=== PATIENT | female | born 1950 | race Caucasian/White ===

== ENCOUNTER 2019-07-01 08:02 | Emergency (ER) | payer MEDICARE ==
[2019-07-01] MEDS ORDERED: Ketorolac Tromethamine 30 MG/ML VIAL ONE (08:25)
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
[2019-07-01] MEDS ORDERED: Diazepam 5 MG TAB ONE (09:00)
== END 2019-07-01 09:18 | disposition home or self-care (01) ==
LOC: ERS 08:02
DX: M54.6 Pain in thoracic spine (principal); M54.5 Low back pain; M54.2 Cervicalgia; R51 Headache; M25.552 Pain in left hip; I10 Essential (primary) hypertension; J44.9 Chronic obstructive pulmonary disease, unspecified; F41.9 Anxiety disorder, unspecified; Z79.899 Other long term (current) drug therapy; V89.2XXA Person injured in unspecified motor-vehicle accident, traffic, initial encounter
CPT/HCPCS: 70450; 72125; 96372; J1885

== ENCOUNTER 2020-08-27 12:50 | Inpatient (IN) | payer MEDICARE ==
[2020-08-27 14:39] LABS: #Eosinphils 0.4 thou/uL (0.0-0.7); #Lymphocytes 1.8 thou/uL (1.20-3.40); #Monocytes 0.7 thou/uL (0.11-0.59); #Neutrophils 5.2 thou/uL (1.40-6.50); %Basophils 0.2 % (0.0-1.0); %Eosinophils 4.5 % (0.0-10.0); %Lymphocytes 22.5 % (21.0-51.0); %Monocytes 8.3 % (0.0-10.0); %Neutrophils 64.5 % (42.0-75.0); Hemoglobin 15.3 g/dL (12.0-16.0); Mean Corpuscular HGB CONC 35.1 g/dL (32.0-36.0); Mean Corpuscular Hemoglobin 31.1 pg (27.0-31.0); Mean Corpuscular Volume 88.5 fL (78.0-98.0); Mean Platelet Volume 7.8 fL (7.4-10.4); Platelet Count 287 thou/uL (130-400); RBC Distribution Width 11.7 % (11.5-14.5); Red Blood Cell (RBC) Count 4.91 mill/uL (4.20-5.40); White Blood Cell (WBC) Count 8.1 thou/uL (4.8-10.8)
[2020-08-27 14:47] LABS: ALT (SGPT) 17 U/L (8-55); AST (SGOT) 17 U/L (5-34); Albumin 4.4 g/dL (3.4-4.8); Alkaline Phosphatase 61 U/L (40-110); Anion Gap 16 mmol/L (10-20); BUN (Urea Nitrogen) 14 mg/dL (9.8-20.1); Calc. Creatinine Clearance 0 mL/min (70-130); Calcium 9.5 mg/dL (7.8-10.44); Carbon Dioxide 22 mmol/L (23-31); Chloride 108 mmol/L (98-107); Glucose 88 mg/dL (80-115); Protein, Total 7.4 g/dL (5.8-8.1); Sodium 142 mmol/L (136-145)
[2020-08-27] MEDS ORDERED: Ondansetron PF 4 MG/2 ML Vial ONE (16:15)
[2020-08-27] MEDS ORDERED: Morphine 4 MG/ML VIAL ONE (16:15)
[2020-08-27 17:21] LABS: Bacteria/HPF None Seen HPF (None Seen); Bilirubin Negative (Negative); Blood, Urine Negative (Negative); Clarity Clear (Clear); Glucose, Urine (Dipstick) Normal (Negative); Ketone, Urine Negative (Negative); Leukocyte 500 Leu/uL (Negative); Nitrite Negative (Negative); Protein, Urine (Dipstick) 20 mg/dL (Neg-Trace); RBC/HPF 0-3 HPF (0-3); Specific Gravity, Urine 1.027 (1.002-1.036); Squamous Epithelial 0-3 HPF (0-3); Urobilinogen Normal mg/dL (Less than 2); WBC/HPF 21-50 HPF (0-3)
[2020-08-27] MEDS ORDERED: Dexamethasone 4 mg/ml Vial ONE (18:26)
[2020-08-27] MEDS ORDERED: cefTRIAXone\\ROCEPHIN 1 GM VIAL ONE (18:27)
[2020-08-27] MEDS ORDERED: Dexamethasone 4 MG TAB ONE (18:27)
[2020-08-27] MEDS ORDERED: Acetaminophen 325 MG TAB PO PRN (19:12)
[2020-08-27] MEDS ORDERED: Senokot S 8.6-50 MG TAB PO PRN (19:12)
[2020-08-27] MEDS ORDERED: Ondansetron PF 4 MG/2 ML Vial IVP PRN (19:12)
[2020-08-27] MEDS ORDERED: Ondansetron ODT 4 MG TAB PO PRN (19:12)
[2020-08-27] MEDS ORDERED: Calcium Carbonate 500 MG ChewTAB PO PRN (19:12)
[2020-08-27] MEDS: Gabapentin 100 MG CAP PO SCH (22:18)
[2020-08-27] MEDS: Famotidine 20 MG TAB PO SCH (22:18)
[2020-08-27] MEDS: oxyCODONE 5 MG TAB PO SCH (23:34)
[2020-08-28 01:49] VITALS: BMI 30.1
[2020-08-28 05:08] LABS: #Lymphocytes 0.8 thou/uL (1.20-3.40); %Basophils 0.8 % (0.0-1.0); %Lymphocytes 16.8 % (21.0-51.0); %Monocytes 0.4 % (0.0-10.0); %Neutrophils 81.9 % (42.0-75.0); Hemoglobin 13.5 g/dL (12.0-16.0); Mean Corpuscular HGB CONC 33.8 g/dL (32.0-36.0); Mean Corpuscular Volume 88.7 fL (78.0-98.0); Mean Platelet Volume 7.8 fL (7.4-10.4); Platelet Count 243 thou/uL (130-400); RBC Distribution Width 11.6 % (11.5-14.5); Red Blood Cell (RBC) Count 4.49 mill/uL (4.20-5.40); White Blood Cell (WBC) Count 4.9 thou/uL (4.8-10.8)
[2020-08-28 05:29] LABS: Anion Gap 13 mmol/L (10-20); BUN (Urea Nitrogen) 16 mg/dL (9.8-20.1); Calc. Creatinine Clearance 74 mL/min (70-130); Calcium 8.8 mg/dL (7.8-10.44); Carbon Dioxide 22 mmol/L (23-31); Chloride 107 mmol/L (98-107); Glucose 155 mg/dL (80-115); Sodium 138 mmol/L (136-145)
[2020-08-28] MEDS: oxyCODONE 5 MG TAB PO SCH ×4 (05:39→23:54)
[2020-08-28 05:43] LABS: SARS-CoV-2 PCR by NAA Not Detected (NotDetected)
[2020-08-28] MEDS: Gabapentin 100 MG CAP PO SCH ×3 (08:56→20:25)
[2020-08-28] MEDS: Famotidine 20 MG TAB PO SCH ×2 (08:56→20:25)
[2020-08-28] MEDS: predniSONE 20 MG TAB PO SCH (09:00)
[2020-08-28] MEDS: Morphine 2 MG/ML VIAL SLOW IVP PRN (20:24)
[2020-08-29] MEDS: oxyCODONE 5 MG TAB PO SCH ×3 (05:22→18:03)
[2020-08-29] MEDS: Morphine 2 MG/ML VIAL SLOW IVP PRN ×3 (05:36→21:02)
[2020-08-29] MEDS: Famotidine 20 MG TAB PO SCH ×2 (08:48→20:59)
[2020-08-29] MEDS: Gabapentin 100 MG CAP PO SCH ×3 (08:48→21:00)
[2020-08-29] MEDS: predniSONE 20 MG TAB PO SCH (08:48)
[2020-08-30] MEDS: oxyCODONE 5 MG TAB PO SCH ×5 (00:15→23:47)
[2020-08-30] MEDS: Morphine 2 MG/ML VIAL SLOW IVP PRN (05:44)
[2020-08-30] MEDS: Famotidine 20 MG TAB PO SCH ×2 (09:18→20:35)
[2020-08-30] MEDS: predniSONE 20 MG TAB PO SCH (09:19)
[2020-08-30] MEDS: Gabapentin 100 MG CAP PO SCH ×3 (09:19→20:36)
[2020-08-30] MEDS: Cyclobenzaprine 10 MG TAB PO PRN (17:10)
[2020-08-30] MEDS: Senokot S 8.6-50 MG TAB PO SCH (20:35)
[2020-08-30] MEDS ORDERED: Polyethylene Glycol 3350 17 GM Packet PO SCH (21:00)
[2020-08-31] MEDS: oxyCODONE 5 MG TAB PO SCH ×3 (05:19→19:31)
[2020-08-31] MEDS: predniSONE 20 MG TAB PO SCH (07:37)
[2020-08-31] MEDS: Senokot S 8.6-50 MG TAB PO SCH ×3 (07:37→20:29)
[2020-08-31] MEDS: Famotidine 20 MG TAB PO SCH ×2 (07:37→20:28)
[2020-08-31] MEDS: Cyclobenzaprine 10 MG TAB PO PRN (07:38)
[2020-08-31] MEDS: Gabapentin 100 MG CAP PO SCH ×3 (09:35→20:28)
[2020-08-31] MEDS ORDERED: Triamterene/Hydrochlorothiazid 75 mg/50 mg Tablet PO SCH (11:15)
[2020-08-31] MEDS: Triamterene/Hydrochlorothiazid 75 mg/50 mg Tablet PO SCH (12:36)
[2020-09-01] MEDS: Cyclobenzaprine 10 MG TAB PO PRN (00:29)
[2020-09-01] MEDS: oxyCODONE 5 MG TAB PO SCH ×2 (01:01→06:12)
[2020-09-01] MEDS: Morphine 2 MG/ML VIAL SLOW IVP PRN ×2 (04:29→15:30)
[2020-09-01] MEDS ORDERED: Thrombin 5000 UNITS/5 ML VIAL ONE (08:45)
[2020-09-01] MEDS ORDERED: Bupivacaine PF 0.5% 30 ML VIAL ONE (08:45)
[2020-09-01] MEDS ORDERED: EPINEPHrine 1 MG/ML AMP ONE (08:45)
[2020-09-01] MEDS: Senokot S 8.6-50 MG TAB PO SCH ×4 (09:12→19:39)
[2020-09-01] MEDS: Famotidine 20 MG TAB PO SCH ×2 (09:12→19:38)
[2020-09-01] MEDS: predniSONE 20 MG TAB PO SCH (09:12)
[2020-09-01] MEDS: Gabapentin 100 MG CAP PO SCH ×3 (09:12→19:39)
[2020-09-01] MEDS ORDERED: Glycopyrrolate 0.2 MG/ML 5 ML SYRINGE ONE (09:24)
[2020-09-01] MEDS ORDERED: Dexamethasone 20 MG/5 ML VIAL ONE (09:24)
[2020-09-01] MEDS ORDERED: Ondansetron PF 4 MG/2 ML Vial ONE (09:24)
[2020-09-01] MEDS ORDERED: PROPOFOL 200 MG/20 ML VIAL ONE (09:24)
[2020-09-01] MEDS ORDERED: ePHEDrine 50 MG/ML VIAL ONE (09:24)
[2020-09-01] MEDS ORDERED: Lidocaine 1% PF 5 ML VIAL ONE (09:24)
[2020-09-01] MEDS ORDERED: PHENYLEPHRINE-NS 100 MCG/ML 10 ML SYRINGE ONE (09:24)
[2020-09-01] MEDS ORDERED: Rocuronium Bromide 10 MG/ML (10ML VIAL) ONE (09:24)
[2020-09-01] MEDS ORDERED: Fentanyl 100 MCG/2 ML VIAL ONE ×2 (10:01→12:45)
[2020-09-01] MEDS ORDERED: HYDROmorphone 2 MG/ML VIAL SLOW IVP PRN (12:00)
[2020-09-01] MEDS ORDERED: PACU-Morphine 4MG/ML VIAL SLOW IVP PRN (12:00)
[2020-09-01] MEDS ORDERED: Promethazine HCl 25 MG/ML VIAL SLOW IVP PRN (12:00)
[2020-09-01] MEDS ORDERED: Ondansetron HCl/PF 4 MG/2 ML Vial IVP PRN (12:00)
[2020-09-01] MEDS ORDERED: Promethazine HCl 25 MG/ML VIAL IM PRN (12:00)
[2020-09-01] MEDS ORDERED: Morphine Sulfate 2 MG/ML SYRINGE SLOW IVP PRN (12:00)
[2020-09-01] MEDS ORDERED: tiZANidine HCl 4 MG TAB PO PRN (12:12)
[2020-09-01] MEDS ORDERED: Ketorolac Tromethamine 30 MG/ML VIAL ONE (12:29)
[2020-09-01] MEDS: Sodium Chloride 0.9% 1,000 ML IV SCH (13:52)
[2020-09-01] MEDS ORDERED: Acetaminophen/Codeine 30-300mg Tablet PO PRN (18:12)
[2020-09-01] MEDS ORDERED: HYDROcodone/Acetaminophen 5/325 mg Tablet PO PRN (18:12)
[2020-09-01] MEDS: CEFAZOLIN 2 GM in Premix Bag 1 BAG IVPB SCH (18:20)
[2020-09-02] MEDS: CEFAZOLIN 2 GM in Premix Bag 1 BAG IVPB SCH (02:23)
[2020-09-02] MEDS: Sodium Chloride 0.9% 1,000 ML IV SCH (02:23)
[2020-09-02 07:57] VITALS: BP 158/76; TEMP 98.4
[2020-09-02] MEDS: predniSONE 20 MG TAB PO SCH (09:18)
[2020-09-02] MEDS: Gabapentin 100 MG CAP PO SCH (09:19)
[2020-09-02] MEDS: Senokot S 8.6-50 MG TAB PO SCH ×2 (09:19)
[2020-09-02] MEDS: Triamterene/Hydrochlorothiazid 75 mg/50 mg Tablet PO SCH (09:19)
[2020-09-02] MEDS: Famotidine 20 MG TAB PO SCH (09:19)
== END 2020-09-02 12:08 | disposition home or self-care (01) | DRG 519 ==
LOC: ERS 12:50 → SURG B 19:00 → INTOOBSV 08-29 11:34 → OBSVTOIN 08-29 11:34
PROVIDERS: ADMIT Surgery; ATTEND Internal Medicine
PROC: 01NB0ZZ Release Lumbar Nerve, Open Approach (ICD-10-PCS; principal; 2020-09-01)
PROC: 0SB20ZZ Excision of Lumbar Vertebral Disc, Open Approach (ICD-10-PCS; 2020-09-01)
DX: M51.16 Intervertebral disc disorders with radiculopathy, lumbar region (principal); N39.0 Urinary tract infection, site not specified; M47.27 Other spondylosis with radiculopathy, lumbosacral region; I10 Essential (primary) hypertension; J44.9 Chronic obstructive pulmonary disease, unspecified; K59.00 Constipation, unspecified; E66.9 Obesity, unspecified; F41.9 Anxiety disorder, unspecified; Z20.822 Contact with and (suspected) exposure to COVID-19; M35.00 Sjogren syndrome, unspecified; Z88.1 Allergy status to other antibiotic agents; Z68.30 Body mass index [BMI] 30.0-30.9, adult
CPT/HCPCS: 36415; 72148; 76000; 80048; 80053; 81003; 81015; 85025; 87086; 87635; 96365; 96375; 96376; G0378; J0171; J0690; J0696; J1100; J1885; J2270; J2405; J2704; J3010; J3370; J3490; J7512; J8540; S0020; U0003; U0005

== ENCOUNTER 2021-02-05 09:10 | Outpatient (CLI) | payer MEDICARE | END 2021-02-05 09:11 | disposition home or self-care (01) | LOC: BICRAD 09:10 | PROVIDERS: ATTEND Neurological Surgery | DX: M54.5 Low back pain (principal); M47.816 Spondylosis without myelopathy or radiculopathy, lumbar region; M43.16 Spondylolisthesis, lumbar region; M48.061 Spinal stenosis, lumbar region without neurogenic claudication; Z98.890 Other specified postprocedural states | CPT/HCPCS: 72100 ==